=== PATIENT | female | born 1980 | race Caucasian/White ===

== ENCOUNTER → 2017-08-22 | Outpatient (CLI) | payer OTHER ==
[~2017-08-22] MED LIST: ALPR1 PO; CARI1TAB34; CITA20TA4 PO; CITA40; HYDR10TA16 PO; IBUP-1116 PO; IBUP1TAB7 PO; PERC10TA27 PO; SOMA350T PO; XANA1TAB2 PO; ZOLP10TA3 PO
[2017-08-22 13:50] LABS: BLOOD, URINE NEG (NEG); COMMENT (UR) CULT NOT INDICATED; CULTURE IF INDICATED CULT NOT INDICATED; GLUCOSE,URINE NEG (NEG); KETONE, URINE NEG (NEG); MUCUS URINE FEW /lpf (OCC); NITRITE,URINE NEG (NEG); PH, URINE 6.5 (5.0-8.5); SQUAMOUS EPITHELIAL CELL URINE <1 /hpf (0-5); URINE COLOR YELLOW (YELLW/STRAW)
[2017-08-22 13:54] LABS: AUTOMATED NEUTROPHIL # 5.6 TH/MM3 (1.8-7.7); BASOPHIL # 0.1 TH/MM3 (0-0.2); BASOPHIL % 0.6 % (0.0-2.0); EOSINOPHIL # 0.2 TH/MM3 (0-0.4); EOSINOPHIL % 2.3 % (0.0-4.0); HEMATOCRIT 43.2 % (35.0-46.0); HEMO FLAGS DIFF FINAL; LYMPH % 26.8 % (9.0-44.0); LYMPHOCYTE # 2.4 TH/MM3 (1.0-4.8); MEAN CORPUSCULAR HEMOGLOBIN 30.8 PG (27.0-34.0); MEAN CORPUSCULAR HGB CONC 33.9 % (32.0-36.0); MONO % 6.9 % (0.0-8.0); NEUT % 63.4 % (16.0-70.0); PLATELET COUNT 267 TH/MM3 (150-450); RED BLOOD COUNT 4.75 MIL/MM3 (4.00-5.30); RED CELL DISTRIBUTION WIDTH 13.8 % (11.6-17.2); WHITE BLOOD COUNT 8.8 TH/MM3 (4.0-11.0)
[2017-08-22 14:21] LABS: BETA HCG QUANT LESS THAN 1 MIU/ML (0-5)
--- NOTE | 2017-08-22 21:56 | EKG ---
Date Performed: 08/22/2017 Time Performed: 13:38:18 PTAGE: 36 years EKG: SINUS BRADYCARDIA LOW QRS VOLTAGE IN PRECORDIAL LEADS BORDERLINE ECG Compared to prior trac ing no significant change DOCTOR: Jojo Nolen Interpretating Date/Time 08/22/2017 21:54:39
== END ==
LOC: CPRE 13:09
PROVIDERS: ATTEND Obstetrics & Gynecology
DX: Z01.812 Encounter for preprocedural laboratory examination (principal); Z01.810 Encounter for preprocedural cardiovascular examination; N92.0 Excessive and frequent menstruation with regular cycle; N94.6 Dysmenorrhea, unspecified
CPT/HCPCS: 36415; 81001; 84702; 85025; 93005

== ENCOUNTER 2017-08-25 05:45 | Observation (INO) | payer OTHER ==
--- NOTE | 2017-08-24 21:50 | MH ---
cc: JENNY DOMÍNGUEZ DATE OF ADMISSION 08/25/2017 HISTORY OF PRESENT ILLNESS The patient is a 36-year-old white female para 1-0-1-1 who returned for evaluation on 07/28/2017 reporting a one year history of increasing menorrhagia, dysmenorrhea refractory to conservative therapy. Her vaginal ultrasound, laboratory profile and initial biopsy are benign. She would like to proceed with hysterectomy. PAST MEDICAL HISTORY 1. Lumbar disk surgery this past year. 2. Additional surgery included a hysteroscopy, D&C, laparoscopy in 2012. 3. 2006 4. C6-C7 fusion 2005. 5. History of depression, anxiety disorder. ALLERGIES ASPIRIN TRANSFUSIONS None. OBSTETRICAL HISTORY at term 2006 SOCIAL HISTORY Tobacco and alcohol are none. She is employed part-time. FAMILY HISTORY Noncontributory. PHYSICAL EXAMINATION GENERAL: A well-nourished, well-developed white female VITAL SIGNS: Stable. HEENT: Exam is normal. CHEST: Clear HEART: Regular rate BREASTS: Symmetrical ABDOMEN: Benign. PELVIC: Normal external genitalia and BUS. Vagina is normal, cervix normal, uterus enlarged about 12 weeks' size. Adnexa non-palpable. ASSESSMENT above. PLAN She is now admitted for a laparoscopy with planned LASH procedure, possible MANA, possible BSO if indicated. While in the office, I explained the procedures, the risks, benefits and complications explained and accepted. MD PAULO Banda/ /8:56 PM /9:23 PM [place]
[~2017-08-25] VITALS: Ht 167.6 cm; Wt 71.2 kg
[~2017-08-25 05:45] MED LIST changes: -ALPR1 PO; -CARI1TAB34; -CITA40; -HYDR10TA16 PO; -IBUP-1116 PO
[2017-08-25] MEDS ORDERED: CHLORHEXIDINE GLUCONATE 2 % 1 PACK (2 CLOTHS)(taper/protocol) TOPICAL PRN (06:15)
[2017-08-25] MEDS ORDERED: CHLORHEXIDINE GLUCONATE 2 % 1 PACK (2 CLOTHS) TOPICAL PRN (06:15)
[2017-08-25] MEDS ORDERED: ceFAZolin 1,000 MG/NS 100 ML IV SCH ×2 (06:15)
[2017-08-25] MEDS ORDERED: LACTATED RINGER'S 1000 ML IV PRN (06:15)
[2017-08-25] MEDS ORDERED: INSULIN HUMAN REGULAR 1,000 UNITS/10 ML VIAL SQ PRN (06:15)
[2017-08-25] MEDS ORDERED: SODIUM CHLORID 0.9% 500 ML IV PRN (06:15)
[2017-08-25] MEDS ORDERED: METOPROLOL TARTRATE 25 MG TAB PO PRN (06:15)
[2017-08-25] MEDS ORDERED: ACETAMINOPHEN 1000 MG/100 ML 100 ML IV PRN (06:15)
[2017-08-25] MEDS ORDERED: POVIDONE IODINE 5% (ANTISEPSIS KIT) 4 APPLICATIONS EACH NARE PRN (06:15)
[2017-08-25] MEDS ORDERED: ACETAMINOPHEN 1000 MG/100 ML 0 ML IV ONE (06:52)
[2017-08-25] MEDS ORDERED: BUPIVACAINE LIPOSOME PF 1.3% 20 ML VIAL ONE (07:32)
[2017-08-25] MEDS ORDERED: D5-1/2 NS + KCL 20 MEQ INJ 1,000 ML IV SCH (08:51)
[2017-08-25] MEDS ORDERED: PROMETHAZINE INJ 25 MG/ML VIAL IM PRN (09:00)
[2017-08-25] MEDS ORDERED: ONDANSETRON HCL 4 MG/2 ML VIAL IV PUSH PRN (09:00)
[2017-08-25] MEDS ORDERED: diphenhydrAMINE HCL 25 MG CAP PO PRN (09:00)
[2017-08-25] MEDS ORDERED: DO NOT ADM ANY ANTICOAGULANT DRUGS PRN (09:12)
[2017-08-25] MEDS ORDERED: *MEPERIDINE 25 MG INJ VIAL PERIprocedural Use ONLY ONE (09:18)
[2017-08-25] MEDS ORDERED: *ONDANSETRON 4 MG VIAL PERIprocedural Use ONLY ONE (09:26)
[2017-08-25] MEDS ORDERED: *morphine SULFATE 8 MG/ML PERIprocedure ONLY ONE ×3 (09:31→09:54)
[2017-08-25] MEDS ORDERED: *HYDROmorphone PF 1 MG VIAL PERIprocedural Use ONLY ONE (10:09)
[2017-08-25 11:00] VITALS: BP 134/80; PULSE 56; RESP 14; TEMP 97.9; O2SAT 97
[2017-08-25] MEDS ORDERED: SODIUM CHLORIDE 0.9% 20 ML VIAL IV ONE (12:00)
[2017-08-25] MEDS ORDERED: KETOROLAC TROMETHAMINE 30 MG/ML (IVP) VIAL IV PUSH ONE (12:00)
[2017-08-25] MEDS ORDERED: PROPOFOL 200 MG/20 ML AMP IV ONE (12:00)
[2017-08-25] MEDS ORDERED: LIDOCAINE HCL 1% PF 5 ML SYRINGE OTHER ONE (12:00)
[2017-08-25] MEDS ORDERED: NEOSTIGMINE 5 MG/5 ML SYRINGE IV PUSH ONE (12:00)
[2017-08-25] MEDS ORDERED: ROCURONIUM INJ 50 MG/5 ML SYRINGE IV PUSH ONE (12:00)
[2017-08-25] MEDS ORDERED: CITALOPRAM HYDROBROMIDE 20 MG TAB PO PRN (12:00)
[2017-08-25] MEDS ORDERED: LACTATED RINGER'S 1000 ML INJ 1,000 ML IV ONE (12:00)
[2017-08-25] MEDS ORDERED: DEXAMETHASONE SOD PHOS 4 MG/ML VIAL IV ONE (12:00)
[2017-08-25] MEDS ORDERED: ONDANSETRON HCL 4 MG/2 ML VIAL IV PUSH ONE (12:00)
[2017-08-25] MEDS ORDERED: GLYCOPYRROLATE 1 MG/5 ML SYRINGE IV PUSH ONE (12:00)
[2017-08-25] MEDS ORDERED: MIDAZOLAM HCL 2 MG/2 ML VIAL IV ONE (12:00)
[2017-08-25] MEDS: KETOROLAC TROMETHAMINE 30 MG/ML (IVP) VIAL IVP SCH ×3 (12:40→23:37)
[2017-08-25] MEDS: DOCUSATE SODIUM 100 MG CAP PO SCH ×2 (12:40→23:00)
[2017-08-25] MEDS ORDERED: ONDANSETRON INJ 8 MG in DEXTROSE 5% IN WATER INJ 50 ML IV PRN ×2 (13:00)
[2017-08-25] MEDS ORDERED: ALPRAZolam 1 MG TAB PO PRN (13:00)
--- NOTE | 2017-08-25 13:04 | MP ---
cc: JENNY DOMÍNGUEZ MD DATE OF SURGERY: 08/25/2017 PREOPERATIVE DIAGNOSIS: Menorrhagia, dysmenorrhea. POSTOPERATIVE DIAGNOSIS: 1. Menorrhagia, dysmenorrhea. 2. Multicystic right ovary. OPERATION: 1. Laparoscopy 2. LASH 3. Right salpingo-oophorectomy. 4. Left salpingectomy. ANESTHESIA: General endotracheal. SURGEON: Jenny Domínguez MD: SPINNING FRAME CLEANER: Nickolas Connors ESTIMATED BLOOD LOSS: about 100 CC FLUIDS: 1.2 liters crystalloid. OBJECTIVE FINDINGS Following induction of adequate general endotracheal anesthesia the patient was prepped and draped supine on the operating table dorsal lithotomy position in the sterile fashion with the bladder being drained via Barba catheterization. The abdomen was opened through a 3-cm curvilinear infraumbilical incision, using a knife to cut down the skin to the fascia. Fascia opened transversely. The muscles split in the midline and the peritoneum opened sharply without incident. Palpation was normal. Mini GelPort was placed laparoscope inserted a 5 port left lower quadrant, Airseal to right lower quadrant, the uterus is about a 12 weeks size, lobular, tubes normal, the left ovary normal. The right was multicystic about 4-5 cm. Cul-de-sacs were clear. Liver edge normal, appendix appeared normal. Working first from the left harmonic scalpel, to take the left mesosalpinx, left round ligament, left broad ligament, left-sided bladder flap and left uterine vessels same on the right. The harmonic scalpel was now used to amputate the fundus from the cervix. The pouch was inserted and the uterus and tubes were extracted through the pouch. The right ovary is now taken with the harmonic scalpel and extracted through the GelPort. Irrigation performed. No bleeding was evident. Blood pressure test revealed there was no bleeding. Ureters selected with good peristalsis. The outside covered with Eviseal and the GelPort removed, peritoneum sutured with running 2-0 Vicryl. Fascia with a running locking stitch of 0 Vicryl corner midline tied, Subcu with 3-0 Vicryl and skin with running subcuticular Monocryl 3-0. The scope was now reinserted through lower ports and used to inspect the GelPort site which was well closed with no entrapment. Pelvis inspected, there was no bleeding. All instruments were removed, all counts correct. The patient taken from [facility], she is awakened and taken to the Recovery Room in good condition. MD PAULO Banda/khari /8:54 AM /12:52 PM [place]
[2017-08-25] MEDS: CARISOPRODOL 350 MG TAB PO PRN ×2 (14:14→20:20)
[2017-08-25] MEDS: ACETAMINOPHEN 1000 MG/100 ML VIAL IV SCH ×2 (15:17→23:12)
[2017-08-25 15:28] LABS: HEMATOCRIT 44.3 % (35.0-46.0); REVIEW FLAG FINAL
[2017-08-25] MEDS: HYDROmorphone HCL PF 1 MG/ML VIAL IV PUSH PRN ×2 (15:47→20:20)
[2017-08-25 16:42] VITALS: BP 98/60; PULSE 69; RESP 14; O2SAT 97
[2017-08-25 20:00] VITALS: BP 124/77; PULSE 66; RESP 18; TEMP 98.8; O2SAT 95
[2017-08-25] MEDS ORDERED: ZOLPIDEM TARTRATE 10 MG TAB PO PRN (21:00)
[2017-08-25] MEDS: ALPRAZolam 1 MG TAB PO PRN (21:54)
[2017-08-25 23:44] VITALS: BP 130/87; PULSE 54; RESP 16; TEMP 97.8; O2SAT 95
[2017-08-26] MEDS: HYDROmorphone HCL PF 1 MG/ML VIAL IV PUSH PRN ×3 (01:18→09:27)
[2017-08-26] MEDS: CARISOPRODOL 350 MG TAB PO PRN ×2 (02:59→09:26)
[2017-08-26 04:00] VITALS: BP 97/56; PULSE 53; RESP 16; TEMP 98.1; O2SAT 95
[2017-08-26 05:23] LABS: AUTOMATED NEUTROPHIL # 5.7 TH/MM3 (1.8-7.7); BASOPHIL % 0.5 % (0.0-2.0); EOSINOPHIL # 0.1 TH/MM3 (0-0.4); EOSINOPHIL % 1.2 % (0.0-4.0); HEMATOCRIT 36.5 % (35.0-46.0); HEMO FLAGS DIFF FINAL; LYMPH % 31.4 % (9.0-44.0); LYMPHOCYTE # 3.1 TH/MM3 (1.0-4.8); MEAN CELL VOLUME 91.3 FL (80.0-100.0); MEAN CORPUSCULAR HEMOGLOBIN 30.8 PG (27.0-34.0); MEAN CORPUSCULAR HGB CONC 33.7 % (32.0-36.0); MONO % 8.9 % (0.0-8.0); PLATELET COUNT 196 TH/MM3 (150-450); RED CELL DISTRIBUTION WIDTH 13.6 % (11.6-17.2); WHITE BLOOD COUNT 9.8 TH/MM3 (4.0-11.0)
[2017-08-26 05:43] LABS: BICARBONATE 28.3 MEQ/L (21.0-32.0)
[2017-08-26] MEDS: ALPRAZolam 1 MG TAB PO PRN (05:50)
[2017-08-26] MEDS: KETOROLAC TROMETHAMINE 30 MG/ML (IVP) VIAL IVP SCH (05:50)
[2017-08-26] MEDS: ACETAMINOPHEN 1000 MG/100 ML VIAL IV SCH (06:47)
[2017-08-26 08:00] VITALS: BP 127/76; PULSE 78; RESP 18; TEMP 98
--- NOTE | 2017-08-26 10:15 | HHI.DCPOC ---
Discharge Care Plan Report Symptoms to Your Doctor -Temperature above 100.5 degrees -Redness, of incision or excessive or foul smelling drainage -Unusual pain or calf pain -Increased vaginal bleeding -Painful or difficulty urinating -Feelings of extreme sadness or anxiety after 2 weeks Goals to Promote Your Health * To prevent worsening of your condition and complications * To maintain your health at the optimal level Directions to Meet Your Goals Take your medications as prescribed Follow your dietary instruction Follow activity as directed Ensure plenty of rest for recovery Drink fluids for hydration Keep your appointments as scheduled Take your immunizations and boosters as scheduled If your symptoms worsen call your PCP, if no PCP go to Urgent Care Center or Emergency Room Smoking is Dangerous to Your Health. Avoid second hand smoke Call the 24-hour crisis hotline for domestic abuse at Jose Cash MD Aug 26, 2017 10:15
== END 2017-08-26 10:40 | disposition home or self-care (01) ==
LOC: HSDC 05:45 → HSDI 08:52 → H1EA 10:20
PROVIDERS: ADMIT Obstetrics & Gynecology; ATTEND Obstetrics & Gynecology
DX: N92.0 Excessive and frequent menstruation with regular cycle (principal); N94.6 Dysmenorrhea, unspecified; N83.8 Other noninflammatory disorders of ovary, fallopian tube and broad ligament; N83.01 Follicular cyst of right ovary; F32.9 Major depressive disorder, single episode, unspecified; F17.210 Nicotine dependence, cigarettes, uncomplicated; Z98.1 Arthrodesis status
CPT/HCPCS: 00840; 58542; 80048; 85014; 85018; 85025; 88307; 96365; 96375; 96376; C9290; G0378; J0131; J0690; J1100; J1170; J1885; J2175; J2250; J2270; J2405; J2710; J3010; J3480; J7120; 88305